=== PATIENT | male | born 1930 | race Caucasian/White ===

== ENCOUNTER 2017-05-29 06:17 | Inpatient (IN) | payer MEDICARE, OTHER ==
[~2017-05-29] VITALS: Ht 182.9 cm; Wt 83.0 kg
--- NOTE | ~2017-05-29 | EKG ---
PATIENT: REGGIE LAWSON UNIT #: [id number] Ventricular Rate: 54 BPM Atrial Rate: 54 BPM P-R Interval: 238 ms QRS Duration: 150 ms Q-T Interval: 480 ms QTC Calculation(Bezet): 455 ms P [place]: 83 degrees Calculated R [place]: -6 degrees Calculated T [place]: 6 degrees Diagnosis Line: Sinus bradycardia with 1st degree A-V block with Diagnosis Line: Premature atrial complexes Diagnosis Line: Right bundle branch block with repolarization Diagnosis Line: abnormality Diagnosis Line: Abnormal ECG Diagnosis Line: When compared with ECG of 14-MAY-2014 10:37, Diagnosis Line: Significant changes have occurred Diagnosis Line: Confirmed by RONEL MANLEY MD ([id number]) on 05/31/2017 Diagnosis Line: 4:39:16 PM INTERPRETING MD: VINEET RUBIO
--- NOTE | ~2017-05-29 | EKG ---
PATIENT: REGGIE LAWSON UNIT #: [id number] Ventricular Rate: 69 BPM Atrial Rate: 69 BPM P-R Interval: 216 ms QRS Duration: 152 ms Q-T Interval: 468 ms QTC Calculation(Bezet): 501 ms P [place]: 52 degrees Calculated T [place]: 8 degrees Diagnosis Line: Sinus rhythm with sinus arrhythmia with 1st degree Diagnosis Line: A-V block Diagnosis Line: Right bundle branch block Diagnosis Line: Minimal voltage criteria for LVH, may be normal Diagnosis Line: variant Diagnosis Line: Inferior infarct , age undetermined Diagnosis Line: Abnormal ECG Diagnosis Line: When compared with ECG of 29-MAY-2017 10:00, Diagnosis Line: (unconfirmed) Diagnosis Line: Premature atrial complexes are no longer Present Diagnosis Line: QT has lengthened Diagnosis Line: Confirmed by EDEL GAY MD ([id number]) on 05/31/2017 Diagnosis Line: 4:58:23 PM INTERPRETING MD: DEIDRA RUBIO
--- NOTE | ~2017-05-29 | OR ---
Unit #: [id number] #: [id number] Patient: REGGIE LAWSON [id number] [facility] [address] [facility]. [place], [place] [address] [id number] MR#: [id number] NAME: REGGIE LAWSON. ROOM: 242 Date of Procedure: 05/29/2017 Admission Date: 05/29/2017 Surgeon: Erick Luna M.D. : 1930 Attending Physician: Erick Luna M.D. Primary Care Physician: Primary Care Physician No OPERATIVE REPORT PRIMARY CARE PHYSICIAN Ag Toscano M.D. PREOPERATIVE DIAGNOSIS Rectal bleeding. POSTOPERATIVE DIAGNOSES 1. Nonbleeding nonthrombosed external hemorrhoids. 2. Pedunculated polyp at 30 cm from the anal verge. 3. Large friable bleeding mass at 25 cm from the anal verge. PROCEDURES PERFORMED Colonoscopy to cecum with snare polypectomy x1 and snare biopsy of the mass. ANESTHESIA Monitored anesthesia. INDICATIONS FOR PROCEDURE An 86-year-old gentleman was sent to the office, because of complaints of intermittent rectal bleeding over the last several months. He reports a colonoscopy 15 years ago at the [facility] and stated he had a polyp removed at that time. He denies a family history of colon cancer. 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 He denies a history of congestive heart failure. DESCRIPTION OF PROCEDURE The patient was admitted to [facility], positively identified, and transported to the endoscopy unit and after appropriate monitoring and positioning, he was sedated by the anesthesiologist. On rectal examination, he had nonthrombosed and nonbleeding external hemorrhoids. Digital examination did not reveal any palpable mass in the rectum and his prostate was normal for age. Colonoscope was passed through the anal verge and throughout the extent of the colon to the cecum with the appendiceal orifice and ileocecal valve were photo-documented. On antegrade and retrograde visualization, he was found to have a pedunculated polyp at 30 cm, which was removed by snare polypectomy and recovered. At 25 cm, he had a very large soft friable bleeding mass that was filling most of the lumen, but I could easily pass the scope beyond the mass, but just by passing the scope over the mass, it initiated some surface bleeding. Using a large snare, I tried to piecemeal remove this lesion, but unfortunately due to its large size, I could get a lot of Unit #: [id number] #: [id number] Patient: REGGIE LAWSON pieces of the mass, but I could not adequately debulk it and assess the base. This lesion is not endoscopically resectable. At this point, we will need surgical resection. For that reason, 4 mL of methylene blue was infiltrated using a sclerotherapy needle into the mucosa to tattoo the area for easy identification. The rest of the endoscopic evaluation was normal. The patient will be admitted to the hospital postop for observation for bleeding and preoperative evaluation for general anesthesia. I discussed this with the patient and his family. Dictated by... Lea Tripathi/rubio TD: 05/29/2017 12:22 JOB #: [id number] OPERATIVE REPORT Page 1 of 1 X Erick Luna MD X PROCEDURE OPERATIVE NOTE
--- NOTE | ~2017-05-29 | OR ---
Unit #: [id number] #: [id number] Patient: REGGIE LAWSON [id number] [address] [place], [place] [address] [id number] Ayanna MR#: [id number] NAME: REGGIE LAWSON. ROOM: [facility] Date of Procedure: 05/30/2017 Admission Date: 05/29/2017 Surgeon: Erick Luna M.D. : 1930 Attending Physician: Erick Luna M.D. Primary Care Physician: Primary Care Physician No OPERATIVE REPORT PREOPERATIVE DIAGNOSIS Sigmoid colon mass. POSTOPERATIVE DIAGNOSIS Sigmoid colon mass. PROCEDURES PERFORMED Exploratory laparotomy, sigmoid colectomy. MANAGER SCIENTIFIC Curry Fishman M.D. ANESTHESIA General endotracheal anesthesia. ESTIMATED BLOOD LOSS 50 mL. INDICATIONS FOR PROCEDURE An 86-year-old gentleman, who presented to the office with 4 to 6 weeks of intermittent rectal bleeding. He was brought in for colonoscopy. On colonoscopy, he was found to have a large soft friable mass at 25 cm from the anal verge. 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 The rest of the colon was able to be evaluated and cleared. DESCRIPTION OF PROCEDURE The patient was transported from his hospital room to the operating room, and after induction of general endotracheal anesthesia, he received IV antibiotics per SCIP protocol. In preoperative hold, he received Entereg p.o. SCDs and a Gaytan catheter were placed. His abdominal wall was clipped of hair and he was put in David stirrups with appropriate padding on all pressure points and he then underwent a rectal prep, had a perianal prep followed by an abdominal prep. Once he was prepped and draped in usual sterile fashion, a midline incision was made dissected down through the soft tissue, entered into the peritoneal cavity. Bookwalter retractor was used. The sigmoid colon was highly redundant and it was mobilized along the line of [place]. Once the sigmoid colon was mobilized, it was pulled up in the mass which had been tattooed was easily palpable. The sigmoid colon was divided proximal to the mass with a SUE stapler. I then sequentially clamped, divided, and ligated the mesentery and once I had an adequate gross distal margin, a contour stapler was used to divide the Unit #: [id number] #: [id number] Patient: REGGIE LAWSON rectosigmoid. 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 There was good hemostasis. The proximal colon was opened along the staple line. 29 mm EEA stapler anvil was passed through the anterior tenia and then the open end was closed. I then went below and dilated the anus and passed the EEA stapler through the rectosigmoid, opened the stapler and stapled EEA anastomosis was performed. The donuts were checked. They were intact. We then clamped off the proximal colon above the anastomosis, filled the pelvis with saline and forcefully insufflated. There were no air bubbles and the proximal colon insufflated. At this point, we irrigated the abdominal cavity, had a normal sponge count. Gowns and gloves were changed. The omentum was pulled over the bowel and the midline fascia was closed with #1 looped PDS suture. Once the fascia was closed, I irrigated the soft tissue with saline and Betadine, and the skin was closed with sterile skin wai and a dry sterile dressing was placed. Sponges and needle counts were correct x3. The patient tolerated the procedure well and was transported to the recovery in stable condition. Findings and postoperative instructions and expectations were discussed with his family. Dictated by... Lea Tripathi/rubio TD: 05/30/2017 17:45 JOB #: [id number] OPERATIVE REPORT Page 1 of 1 X Erick Luna MD X PROCEDURE OPERATIVE NOTE
--- NOTE | ~2017-05-29 | DS ---
Unit #: [id number] #: [id number] Patient: REGGIE WILL [id number] [address] [place], [place] [address] [id number] I MR#: [id number] NAME: REGGIE WILL. ROOM: 465 Age: 86 Sex: M Admission Date: 05/29/2017 : 1930 Discharge Date: 06/03/2017 Attending Physician: Erick Luna M.D. Primary Care Physician: No Primary Care Physician DISCHARGE SUMMARY HISTORY AND HOSPITAL COURSE Mr. Will is an 86-year-old gentleman who presented to the office with complaints of some rectal bleeding over several months and he was scheduled for outpatient colonoscopy. The morning of colonoscopy, he was found to have a large mass in the sigmoid colon that was not resectable endoscopically. On biopsy, there was concern about carcinoma. He was admitted to the hospital and the following day, after cardiac clearance, was taken to the operating room and underwent sigmoid colectomy without complication. He had an unremarkable postoperative course. He remained afebrile throughout and, once he regained bowel function, he was able to be quickly advanced on his diet. He was ambulating independently and his laboratories were unremarkable. 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 Patient is doing very well at this time and his wound is healing without complication. He will be discharged home in stable condition with instructions to undergo diet as tolerated, to ambulate ad kita but do no lifting or other strenuous activity. He may shower but not submerge his wound under water. He is to call the office for a followup next week for wound evaluation. Prescription for hydrocodone 5 mg tablets was left and I have given him a prescription for Flomax as he was found to have prostatic hypertrophy. Dr. Som Galvez from cardiology has altered his blood medications and will confirm those on the reconciliation sheet before discharge. Dictated by... Lea Tripathi/tio TD: 06/05/2017 10:44 JOB #: [id number] DISCHARGE SUMMARY Page 1 of 1 X Erick Luna MD X DISCHARGE SUMMARY
[~2017-05-29 06:17] MED LIST: AMLODIPINE BESYL5 MG PO; CEFTRIAXONE2 GM IM/IV; CIPRO PO; DOXYCYCLINE HYC50 M2; LORTAB 7.5-5001 TAB PO; LOW DOSE ASPIRI81 M1 PO; VANCOMYCIN750 MG/151 IV
[2017-05-29 11:27] LABS: ALBUMIN SERUM 3.7 g/dL (3.5-5.0); BILIRUBIN,TOTAL 1.2 mg/dL (0.2-2.0); BUN/CREATININE RATIO 17.14; CALCIUM SERUM 8.7 mg/dL (8.4-10.2); CREATININE SERUM 0.7 mg/dL (0.6-1.4); GLOM FILT RATE Estimated 86.7 mL/min (>60); MAGNESIUM 1.8 mg/dL (1.6-3.0); PHOSPHOROUS 4.2 mg/dL (2.5-4.6); POTASSIUM 4.1 mmol/L (3.5-5.1); PROTEIN TOTAL SERUM 6.4 g/dL (6.0-8.3)
[2017-05-29 11:33] LABS: BASOPHIL% 0.5 % (0-2.5); EOSINOPHIL# 0.2 X10e3 (0-0.7); HEMATOCRIT 43.3 % (38.0-50.0); HEMOGLOBIN 15.2 gm/dL (13.0-16.0); LYMPHOCYTE# 1.2 X10e3 (1.0-3.5); LYMPHOCYTE% 20.2 % (17.0-45.0); MEAN CELL VOLUME 95.3 FL (83-96); MEAN CORPUSCULAR HEMOGLOBIN 33.5 PG (28-34); MEAN CORPUSCULAR HGB CONC 35.2 g/dL (30-36); MEAN PLATELET VOLUME 7.1 FL (6.5-11.5); MONOCYTE# 0.5 X10e3 (0-1.0); MONOCYTE% 8.7 % (3.0-12.0); NEUTROPHIL# 4.1 X10e3 (1.5-7.1); NEUTROPHIL% 66.6 % (40-75); PLATELET COUNT 124 X10e3 (140-420); RED BLOOD COUNT 4.55 X10e (3.90-5.60); RED CELL DISTRIBUTION WIDTH 13.4 % (11.0-15.5); WHITE BLOOD COUNT 6.2 X10e3 (4.0-10.5)
[2017-05-29 11:34] LABS: DIFF IND NO
[2017-05-30 09:14] LABS: BUN/CREATININE RATIO 8.75; CALCIUM SERUM 8.8 mg/dL (8.4-10.2); CREATININE SERUM 0.8 mg/dL (0.6-1.4); GLOM FILT RATE Estimated 82.1 mL/min (>60); MAGNESIUM 1.7 mg/dL (1.6-3.0); POTASSIUM 4.1 mmol/L (3.5-5.1)
[2017-05-31 04:05] LABS: HEMATOCRIT 41.4 % (38.0-50.0); HEMOGLOBIN 14.2 gm/dL (13.0-16.0); LYMPHOCYTE# 0.3 X10e3 (1.0-3.5); LYMPHOCYTE% 2.5 % (17.0-45.0); MEAN CELL VOLUME 96.7 FL (83-96); MEAN CORPUSCULAR HEMOGLOBIN 33.2 PG (28-34); MEAN CORPUSCULAR HGB CONC 34.3 g/dL (30-36); MEAN PLATELET VOLUME 7.1 FL (6.5-11.5); MONOCYTE% 7.3 % (3.0-12.0); NEUTROPHIL# 12.6 X10e3 (1.5-7.1); NEUTROPHIL% 90.2 % (40-75); PLATELET COUNT 139 X10e3 (140-420); RED BLOOD COUNT 4.28 X10e (3.90-5.60); RED CELL DISTRIBUTION WIDTH 13.7 % (11.0-15.5)
[2017-05-31 04:07] LABS: DIFF IND NO; WHITE BLOOD COUNT 13.9 X10e3 (4.0-10.5)
[2017-05-31 04:13] LABS: CALCIUM SERUM 8.3 mg/dL (8.4-10.2); GLOM FILT RATE Estimated 68.8 mL/min (>60); MAGNESIUM 1.7 mg/dL (1.6-3.0); PHOSPHOROUS 4.8 mg/dL (2.5-4.6); POTASSIUM 4.2 mmol/L (3.5-5.1)
[2017-06-01 03:47] LABS: HEMATOCRIT 36.8 % (38.0-50.0); HEMOGLOBIN 12.8 gm/dL (13.0-16.0); MEAN CELL VOLUME 96.3 FL (83-96); MEAN CORPUSCULAR HEMOGLOBIN 33.5 PG (28-34); MEAN CORPUSCULAR HGB CONC 34.8 g/dL (30-36); MEAN PLATELET VOLUME 7.3 FL (6.5-11.5); RED BLOOD COUNT 3.82 X10e (3.90-5.60); RED CELL DISTRIBUTION WIDTH 13.7 % (11.0-15.5); WHITE BLOOD COUNT 9.3 X10e3 (4.0-10.5)
[2017-06-01 04:21] LABS: BUN/CREATININE RATIO 8.88; CALCIUM SERUM 8.2 mg/dL (8.4-10.2); CREATININE SERUM 0.9 mg/dL (0.6-1.4); GLOM FILT RATE Estimated 78.2 mL/min (>60); MAGNESIUM 1.6 mg/dL (1.6-3.0); PHOSPHOROUS 3.5 mg/dL (2.5-4.6); POTASSIUM 3.9 mmol/L (3.5-5.1)
[2017-06-03 03:56] LABS: BUN/CREATININE RATIO 13.75; CALCIUM SERUM 8.6 mg/dL (8.4-10.2); CREATININE SERUM 0.8 mg/dL (0.6-1.4); GLOM FILT RATE Estimated 82.1 mL/min (>60); POTASSIUM 3.7 mmol/L (3.5-5.1)
[2017-06-03] MEDS ORDERED: FLOMAX0.4 M1 PO (09:46)
[2017-06-03] MEDS ORDERED: ZESTORETIC 20-1 EAC1 PO (09:47)
[2017-06-03] MEDS ORDERED: HYDROCODON-ACE1 EAC7 PO (09:47)
== END 2017-06-03 10:14 | disposition home or self-care (01) | DRG 330 ==
LOC: COPS 06:17 → C2A 08:25 → CPACUOF 08:25 → C4C 08:25 → COPS 09:00 → CPACUOF 09:00 → C2A 11:58 → C4C 05-30 18:28
PROVIDERS: Internal Medicine Cardiovascular Disease; Specialist
PROC: 0DBH8ZX Excision of Cecum, Via Natural or Artificial Opening Endoscopic, Diagnostic (ICD-10-PCS; principal; 2017-05-29 07:30)
PROC: B246YZZ Ultrasonography of Right and Left Heart using Other Contrast (ICD-10-PCS; 2017-05-29 07:30)
PROC: 0DBN0ZZ Excision of Sigmoid Colon, Open Approach (ICD-10-PCS; 2017-05-30 13:30)
DX: C18.7 Malignant neoplasm of sigmoid colon (principal); Q23.1 Congenital insufficiency of aortic valve; I10 Essential (primary) hypertension; I97.3 Postprocedural hypertension; Y83.9 Surgical procedure, unspecified as the cause of abnormal reaction of the patient, or of later complication, without mention of misadventure at the time of the procedure; Z85.46 Personal history of malignant neoplasm of prostate; N40.0 Benign prostatic hyperplasia without lower urinary tract symptoms; K64.4 Residual hemorrhoidal skin tags; Z90.49 Acquired absence of other specified parts of digestive tract
CPT/HCPCS: 80048; 80053; 82378; 83735; 84100; 84484; 85025; 85027; 86850; 86900; 86901; 88305; 88309; 88331; 88341; 88342; 93005; 93306; 94760; C9113; J1100; J1170; J1650; J1885; J1940; J2405; J2710; J2765; J3010